=== PATIENT | female | born 1990 | race Caucasian/White ===

== ENCOUNTER 2017-03-26 09:54 | Emergency (ER) | payer OTHER ==
[~2017-03-26] VITALS: Ht 165.1 cm; Wt 61.3 kg
[2017-03-26 10:05] VITALS: TEMP 36.8; Ht 165.1 cm; Wt 61.3 kg
--- NOTE | 2017-03-26 10:27 | EMERGENCY ROOM VISIT NOTE ---
History First contact with patient: 10:10 Chief Complaint: VAGINAL BLEEDING Stated Complaint: BLEEDING - MISCARRIAGE History of Present Illness The patient is a 27 year old female who presents to the Emergency Room with complaints of one episode of vaginal bleeding that occurred 4 days ago. Denies abdominal pain, cramping, back pain, vaginal discharge, urinary symptoms. She has not had any recurrent bleeding, but states she is here because she could not be seen at OB office for more than 2 weeks and wanted to get checked out. Denies heavy bleeding or large clots. Describes as similar to period flow. , no history of miscarriage. LMP 01/22. Thinks she is about 9 weeks based on home . She denies any history of bleeding with her previous pregnancies. She denies any history of bleeding disorders. Review of Systems GENERAL: Denies fevers, chills, malaise, fatigue, unintentional weight changes. HEENT: Denies dizziness, visual problems, hearing loss, tinnitus. Denies difficulty swallowing or oral lesions. PULMONARY: Denies cough, shortness of breath, sputum production or hemoptysis. CARDIOVASCULAR: Denies chest pain, palpitations, dyspnea on exertion, orthopnea or peripheral edema. GASTROINTESTINAL: Denies diarrhea, constipation, nausea, vomiting, or abdominal pain. GENITOURINARY: Denies dysuria, frequency, urgency or nocturia. + Vaginal bleeding. NEUROLOGIC: Denies history of epilepsy, CVA, TIA or chronic headaches. MUSCULOSKELETAL: Denies history of joint tenderness/swelling. SKIN: Denies rashes or lesions. PSYCHIATRIC: Denies history of depression or mental illness. ENDOCRINE: Denies history of diabetes, thyroid disorders, abnormal hair growth or sexual dysfunction. Social History Smoking Status: Never Smoker Current/Historical Medications No Active Prescriptions or Reported Meds Allergies Coded Allergies: No Known Allergies (Unverified , 03/26/17) Physical Exam Vital Signs Date Time Temp Pulse Resp B/P Pulse Ox O2 Delivery O2 Flow Rate FiO2 03/26/17 13:40 70 18 104/72 98 03/26/17 12:15 70 18 121/70 98 Room Air 03/26/17 10:05 36.8 92 18 104/68 100 Room Air Physical Exam CONSTITUTIONAL: No acute distress. Well appearing and well nourished. Alert and oriented X 4 with normal affect. HEENT: Normocephalic, atraumatic. Pupils equal, round and reactive to light, EOMI. TMs normal. Pharynx normal. NECK: Supple, full active range of motion without discomfort. RESPIRATORY: Clear to auscultation bilaterally with no wheezing, crackles, rhonchi or stridor. Equal expansion bilaterally. CARDIOVASCULAR: Regular rate and rhythm with no murmurs, rubs or gallops. Normal peripheral perfusion. No edema. GASTROINTESTINAL: Soft, nontender, nondistended. Bowel sounds present in all quadrants. GENITOURINARY: Pelvic exam was deferred due to patient's refusal to have this examined. MUSCULOSKELETAL: Full range of motion of all joints without discomfort. INTEGUMENTARY: No rash or other significant dermatologic conditions noted. NEUROLOGIC: Cranial nerves II-XII grossly intact. No focal neurologic deficits noted. Medical Decision & Procedures ER Provider Diagnostic Interpretation: ULTRASOUND OF THE GRAVID UTERUS AND PELVIS CLINICAL HISTORY: with vaginal bleeding. COMPARISON STUDY: No priors. TECHNIQUE: Real-time, grayscale, and color flow sonography of the pelvis is performed transabdominally. Images are reviewed in the transverse and longitudinal planes. FINDINGS: Uterus: The gravid uterus measures approximately 8 cm in length Gestation: There is a single live uterine gestation assessment heart rate of 170 bpm. A yolk sac is identified. The crown-rump length measures 2.18 cm, corresponding to an estimated age of 8 weeks 6 days. This is concordant with the mean gestational sac diameter of 3.29 cm which corresponds to an estimated age of 8 weeks 2 days. There is a large complex nonvascular subchorionic collection measuring 6.0 x 1.9 x 5.3 cm, typical in appearance for a subchorionic hemorrhage. Ovaries: The ovaries are normal in size and morphology. The right ovary measures 3.4 x 1.6 x 3.2 cm and the left ovary measures 4.4 x 3.4 x 2.7 cm. There are numerous small ovarian follicles. Normal Doppler waveforms are shown within both ovaries. Pelvis: There is no free fluid in the cul-de-sac. No concerning adnexal lesion is seen. IMPRESSION: 1. There is a single live intrauterine gestation with an estimated age of 8 weeks 6 days by crown-rump length measurement. 2. Large subchorionic hemorrhage. 3. The ovaries are normal as visualized. Laboratory Results 03/26/17 10:50 Red Blood Count 4.32, Mean Corpuscular Volume 88.9, Mean Corpuscular Hemoglobin 29.4, Mean Corpuscular Hemoglobin Concent 33.1, Mean Platelet Volume 11.0, Neutrophils (%) (Auto) 58.7, Lymphocytes (%) (Auto) 27.8, Monocytes (%) (Auto) 10.0, Eosinophils (%) (Auto) 3.1, Basophils (%) (Auto) 0.3, Neutrophils # (Auto ) 4.19, Lymphocytes # (Auto) 1.98, Monocytes # (Auto) 0.71, Eosinophils # (Auto ) 0.22, Basophils # (Auto) 0.02 03/26/17 10:50 Test 03/26/17 10:50 03/26/17 11:15 White Blood Count 7.13 K/uL (4.8-10.8) Red Blood Count 4.32 M/uL (4.2-5.4) Hemoglobin 12.7 g/dL (12.0-16.0) Hematocrit 38.4 % (37-47) Mean Corpuscular Volume 88.9 fL (80-100) Mean Corpuscular Hemoglobin 29.4 pg (25-34) Mean Corpuscular Hemoglobin Concent 33.1 g/dl (32-36) Platelet Count 217 K/uL (130-400) Mean Platelet Volume 11.0 fL (7.4-10.4) Neutrophils (%) (Auto) 58.7 % Lymphocytes (%) (Auto) 27.8 % Monocytes (%) (Auto) 10.0 % Eosinophils (%) (Auto) 3.1 % Basophils (%) (Auto) 0.3 % Neutrophils # (Auto) 4.19 K/uL (1.4-6.5) Lymphocytes # (Auto) 1.98 K/uL (1.2-3.4) Monocytes # (Auto) 0.71 K/uL (0.11-0.59) Eosinophils # (Auto) 0.22 K/uL (0-0.5) Basophils # (Auto) 0.02 K/uL (0-0.2) RDW Standard Deviation 39.7 fL (36.4-46.3) RDW Coefficient of Variation 12.4 % (11.5-14.5) Immature Granulocyte % (Auto) 0.1 % Immature Granulocyte # (Auto) 0.01 K/uL (0.00-0.02) Anion Gap 7.0 mmol/L (3-11) Est Creatinine Clear Calc Drug Dose 133.4 ml/min Estimated GFR () 148.5 Estimated GFR (Non- 128.1 BUN/Creatinine Ratio 12.0 (10-20) Calcium Level 8.5 mg/dl (8.5-10.1) Human Chorionic Gonadotropin, Qual POS (NEG) Urine Color YELLOW Urine Appearance CLEAR (CLEAR) Urine pH 7.0 (4.5-7.5) Urine Specific Fowler 1.012 (1.000-1.030) Urine Protein NEG (NEG) Urine Glucose (UA) NEG (NEG) Urine Ketones NEG (NEG) Urine Occult Blood NEG (NEG) Urine Nitrite NEG (NEG) Urine Bilirubin NEG (NEG) Urine Urobilinogen NEG (NEG) Urine Leukocyte Esterase NEG (NEG) Urine Test POS (NEG) Medical Decision CC: Patient presenting with complaint of vaginal bleeding Interpretation of Labs: No leukocytosis, no anemia, no UTI. Differential Diagnosis: Includes, but not limited to ectopic , threatened miscarriage, ovarian cyst, subchorionic hemorrhage Summary: Patient was evaluated at bedside, history of physical exam performed. She is in no distress. No abdominal tenderness on exam. Pelvic exam refused by the patient. Orders were placed at bedside for labs, UA, pelvic US to evaluate early state. Patient discussed with Dr. Bello, who agrees with my assessment and plan. Labs reviewed, unremarkable. No UTI. US reviewed, shows single IUP with normal HR and development consistent with predicted dates.Large subchorionic hemorrhage noted. No active vaginal bleeding while in the ED. Suspect patient's bleeding is most likely related to the subchorionic hemorrhage , less likely concern for miscarriage with normal progression of on ultrasound. However, patient was counseled on possible threatened miscarriage given bleeding in early . Patient reassessed multiple times throughout ED stay, remains stable and without complaint. VS stable. Patient provided with OB referral for follow-up. Impression Primary Impression: Subchorionic hemorrhage in first trimester Additional Impression: Vaginal bleeding in patient at less than 20 weeks gestation Departure Information Dispostion Home / Self-Care Condition GOOD Prescriptions No Active Prescriptions or Reported Meds Referrals Nilo Jackson M.D. Patient Instructions ED Miscarriage Poss, My [facility] Additional Instructions Call the OB office to set up a follow-up appointment within the next week. Drink plenty of fluids to stay well hydrated. Please return to the ER for worsening symptoms, including severe abdominal or back pain, heavy vaginal bleeding (soaking more than 1 pad per hour) or passing very large clots, persistent vomiting and unable to keep down anything by mouth , fevers/chills/feeling ill, or any other concerns. Problem Qualifiers
[2017-03-26 10:59] LABS: BASO % 0.3 %; BASO ABS # 0.02 K/uL (0-0.2); COMPLETE YES; EOS % 3.1 %; HEMATOCRIT 38.4 % (37-47); IG% 0.1 %; LYMPH % 27.8 %; LYMPH ABS # 1.98 K/uL (1.2-3.4); MEAN CELL VOLUME 88.9 fL (80-100); MEAN CORPUSCULAR HEMOGLOBIN 29.4 pg (25-34); MEAN CORPUSCULAR HGB CONC 33.1 g/dl (32-36); NEUT % 58.7 %; PLATELET COUNT 217 K/uL (130-400); RED BLOOD COUNT 4.32 M/uL (4.2-5.4); WHITE BLOOD COUNT 7.13 K/uL (4.8-10.8)
[2017-03-26 11:17] LABS: CALCIUM 8.5 mg/dl (8.5-10.1); CREATININE 0.58 mg/dl (0.60-1.20); POTASSIUM 3.9 mmol/L (3.5-5.1)
[2017-03-26 11:23] LABS: PREG INTERNAL NEGATIVE QC NEG CLEAR BACKGROUND; PREG INTERNAL POSITIVE QC POS CONTROL LINE
[2017-03-26 11:57] LABS: PREG INTERNAL NEGATIVE QC NEG CLEAR BACKGROUND; PREG INTERNAL POSITIVE QC POS CONTROL LINE
[2017-03-26 12:02] LABS: URINE APPEARANCE CLEAR (CLEAR); URINE BILIRUBIN NEG (NEG); URINE COLOR YELLOW; URINE NITRITE NEG (NEG); URINE SPECIFIC GRAVITY 1.012 (1.000-1.030); UROBILINOGEN NEG (NEG)
[2017-03-26 12:09] LABS: MANUAL MICROSCOPIC REQUIRED? NO; REVIEW REQ? NO
--- NOTE | 2017-03-26 12:16 | DIAGNOSTIC IMAGING REPORT ---
ULTRASOUND OF THE GRAVID UTERUS AND PELVIS CLINICAL HISTORY: with vaginal bleeding. COMPARISON STUDY: No priors. TECHNIQUE: Real-time, grayscale, and color flow sonography of the pelvis is performed transabdominally. Images are reviewed in the transverse and longitudinal planes. FINDINGS: Uterus: The gravid uterus measures approximately 8 cm in length Gestation: There is a single live uterine gestation assessment heart rate of 170 bpm. A yolk sac is identified. The crown-rump length measures 2.18 cm, corresponding to an estimated age of 8 weeks 6 days. This is concordant with the mean gestational sac diameter of 3.29 cm which corresponds to an estimated age of 8 weeks 2 days. There is a large complex nonvascular subchorionic collection measuring 6.0 x 1.9 x 5.3 cm, typical in appearance for a subchorionic hemorrhage. Ovaries: The ovaries are normal in size and morphology. The right ovary measures 3.4 x 1.6 x 3.2 cm and the left ovary measures 4.4 x 3.4 x 2.7 cm. There are numerous small ovarian follicles. Normal Doppler waveforms are shown within both ovaries. Pelvis: There is no free fluid in the cul-de-sac. No concerning adnexal lesion is seen. IMPRESSION: 1. There is a single live intrauterine gestation with an estimated age of 8 weeks 6 days by crown-rump length measurement. 2. Large subchorionic hemorrhage. 3. The ovaries are normal as visualized. Electronically signed by: Matti Sanchez M.D. 03/26/2017 12:15 PM Dictated Date/Time: 03/26/2017 12:10 PM
[2017-03-26 13:40] VITALS: BP 104/72; PULSE 70; O2SAT 98
== END 2017-03-26 13:40 | disposition home or self-care (01) ==
LOC: C.EDB 09:58 → C.EDC 13:40
DX: O20.8 Other hemorrhage in early pregnancy (principal); Z3A.08 8 weeks gestation of pregnancy